=== PATIENT | female | born 1990 | race Caucasian/White ===

== ENCOUNTER 2019-08-29 15:51 | Outpatient (CLI) | payer OTHER ==
[~2019-08-29] VITALS: Ht 165.1 cm; Wt 70.4 kg
[2019-08-29] MEDS ORDERED: TERBUTALINE 1 MG/ML, 1ML SQ ONE (16:00)
[2019-08-29] MEDS ORDERED: TERBUTALINE 1 MG/ML, 1ML ONE (16:00)
[2019-08-29 18:43] LABS: MICROSCOPIC NOT IND
== END 2019-08-29 20:06 | disposition home or self-care (01) ==
LOC: LDOP 15:51
PROVIDERS: ATTEND Obstetrics & Gynecology
DX: O60.00 Preterm labor without delivery, unspecified trimester (principal); Z3A.32 32 weeks gestation of pregnancy
CPT/HCPCS: 59025; 76815; 81003; 87086; 96372; 99201; J3105; G0463

== ENCOUNTER 2019-09-21 12:59 | Outpatient (CLI) | payer OTHER ==
[~2019-09-21] VITALS: Ht 165.1 cm; Wt 90.9 kg
[2019-09-21] MEDS ORDERED: PREN1TAB60 PO (13:53)
[2019-09-21] MEDS ORDERED: acyclovir (13:54)
== END 2019-09-21 14:01 | disposition home or self-care (01) ==
LOC: LDOP 12:59
PROVIDERS: ATTEND Obstetrics & Gynecology
DX: O60.03 Preterm labor without delivery, third trimester (principal); Z3A.36 36 weeks gestation of pregnancy
CPT/HCPCS: 59025; 87081; 99211; G0463

== ENCOUNTER 2019-10-13 06:00 | Inpatient (IN) | payer OTHER ==
[~2019-10-13] VITALS: Ht 165.1 cm; Wt 72.7 kg
[~2019-10-13 06:00] MED LIST: PREN1TAB60 PO; acyclovir
[2019-10-13] MEDS: D5%-LACTATED RINGERS 1,000 ML IV SCH ×3 (06:20→22:20)
[2019-10-13] MEDS ORDERED: OXYTOCIN 30U/ 0.9% NaCL 500ML 500 ML IV ONE (06:20)
[2019-10-13] MEDS ORDERED: OXYTOCIN 30U/ 0.9% NaCL 500ML 500 ML IV PRN (06:20)
[2019-10-13 06:27] VITALS: BP 112/61
[2019-10-13] MEDS ORDERED: TERBUTALINE 1 MG/ML, 1ML SQ PRN (06:30)
[2019-10-13] MEDS ORDERED: FENTANYL PF 100 MCG/2ML IVPush PRN (06:30)
[2019-10-13] MEDS ORDERED: ONDANSETRON 2MG/ML, 2ML IVPush PRN ×2 (06:30→21:00)
[2019-10-13] MEDS ORDERED: CALCIUM CARBONATE 500 MG TAB.CHEW PO PRN ×2 (06:30→19:30)
[2019-10-13] MEDS ORDERED: FENTANYL PF 100 MCG/2ML IV PRN (06:30)
[2019-10-13] MEDS ORDERED: TERBUTALINE 1 MG/ML, 1ML IVPush PRN (06:30)
[2019-10-13] MEDS ORDERED: NEWBORN KIT ONE (06:37)
[2019-10-13] MEDS ORDERED: MISOPROSTOL 200 MCG TABLET ONE (06:38)
[2019-10-13] MEDS ORDERED: OXYTOCIN 30U/ 0.9% NaCL 500ML 500 ML ONE ×2 (06:38→20:08)
[2019-10-13] MEDS ORDERED: LIDOCAINE 1%, 20ML ONE (06:38)
[2019-10-13 06:41] LABS: BASOPHILS # (AUTO) 0.02 x10^3/uL (0-0.1); BASOPHILS % (AUTO) 0 % (0-1); EOSINOPHILS # (AUTO) 0.12 x10^3/uL (0-0.4); EOSINOPHILS % (AUTO) 2 % (1-7); LYMPHOCYTES # (AUTO) 1.81 x10^3/uL (1-3.4); LYMPHOCYTES % (AUTO) 25 % (22-44); MD NO; MEAN CORPUSCULAR HEMOGLOBIN 34.4 pg (27.0-34.8); MEAN CORPUSCULAR HGB CONC 34.1 g/dL (32.4-35.8); MEAN CORPUSCULAR VOLUME 100.7 fL (80-100); MEAN PLATELET VOLUME 7.2 fL (7.4-10.4); MONOCYTES # (AUTO) 0.34 x10^3/uL (0.2-0.8); MONOCYTES % (AUTO) 5 % (2-9); NEUTROPHILS # (AUTO) 5.09 x10^3/uL (1.8-6.8); NEUTROPHILS % (AUTO) 69 % (42-75); PLATELET COUNT 181 x10^3/uL (130-400); RED BLOOD COUNT 3.71 x10^6/uL (3.82-5.3); RED CELL DISTRIBUTION WIDTH 14.3 % (9.6-15.2)
[2019-10-13] MEDS: LACTATED RINGERS 1,000 ML IV SCH ×4 (07:01→20:39)
[2019-10-13] MEDS ORDERED: FENTANYL/BUPIV./NS/PF 250 ML EPIDCONT SCH ×2 (07:50→20:39)
[2019-10-13] MEDS ORDERED: FENTANYL PF 500 MCG, BUPIVACAINE/PF 0.5%, 30ML 62.5 ML in SODIUM CHLORIDE 0.9% 177.5 ML EPIDCONT SCH (08:00)
[2019-10-13] MEDS ORDERED: FENTANYL PF 100 MCG/2ML ONE (12:33)
[2019-10-13] MEDS ORDERED: BUPIVACAINE 0.25% ONE (12:33)
[2019-10-13] MEDS ORDERED: ONDANSETRON 2MG/ML, 2ML ONE (19:24)
[2019-10-13] MEDS ORDERED: MISOPROSTOL 200 MCG TABLET PR PRN (19:30)
[2019-10-13] MEDS ORDERED: SIMETHICONE 80 MG CHEW TAB PO PRN (19:30)
[2019-10-13] MEDS ORDERED: OXYcodone IR 5MG TABLET PO PRN (19:30)
[2019-10-13] MEDS ORDERED: ONDANSETRON 2MG/ML, 2ML IV PRN (19:30)
[2019-10-13] MEDS: OXYTOCIN 30U/ 0.9% NaCL 500ML 500 ML IV SCH (20:10)
[2019-10-13] MEDS ORDERED: LACTATED RINGERS 1,000 ML IVBOLUS PRN (21:00)
[2019-10-13] MEDS ORDERED: EPHEDRINE 50 MG/ML, 1ML IVPush PRN (21:00)
[2019-10-13 22:00] VITALS: BP 110/70
[2019-10-13] MEDS: IBUPROFEN 600 MG TABLET PO PRN (23:23)
[2019-10-13 23:30] VITALS: BP 113/78
[2019-10-14 03:34] LABS: BASOPHILS # (AUTO) 0.03 x10^3/uL (0-0.1); BASOPHILS % (AUTO) 0 % (0-1); EOSINOPHILS # (AUTO) 0.11 x10^3/uL (0-0.4); EOSINOPHILS % (AUTO) 1 % (1-7); LYMPHOCYTES # (AUTO) 2.12 x10^3/uL (1-3.4); LYMPHOCYTES % (AUTO) 19 % (22-44); MD NO; MEAN CORPUSCULAR HEMOGLOBIN 34.7 pg (27.0-34.8); MEAN CORPUSCULAR HGB CONC 34.6 g/dL (32.4-35.8); MEAN CORPUSCULAR VOLUME 100.4 fL (80-100); MEAN PLATELET VOLUME 7.2 fL (7.4-10.4); MONOCYTES # (AUTO) 0.62 x10^3/uL (0.2-0.8); MONOCYTES % (AUTO) 6 % (2-9); NEUTROPHILS # (AUTO) 8.15 x10^3/uL (1.8-6.8); NEUTROPHILS % (AUTO) 74 % (42-75); PLATELET COUNT 151 x10^3/uL (130-400); RED BLOOD COUNT 2.98 x10^6/uL (3.82-5.3); RED CELL DISTRIBUTION WIDTH 14.3 % (9.6-15.2)
[2019-10-14 03:40] VITALS: BP 104/67
[2019-10-14] MEDS: LACTATED RINGERS 1,000 ML IV SCH ×3 (04:39→12:39)
[2019-10-14] MEDS: IBUPROFEN 600 MG TABLET PO PRN ×3 (05:11→16:59)
[2019-10-14] MEDS: OXYTOCIN 30U/ 0.9% NaCL 500ML 500 ML IV SCH (05:30)
[2019-10-14] MEDS: D5%-LACTATED RINGERS 1,000 ML IV SCH (06:20)
[2019-10-14 08:20] VITALS: BP 108/66
[2019-10-14] MEDS: DOCUSATE 100 MG CAPSULE PO PRN ×2 (09:50→19:01)
[2019-10-14] MEDS: PRENATAL VIT/IRON/FA 1 EACH TABLET PO SCH (09:50)
[2019-10-14] MEDS: ACETAMINOPHEN 325 MG TABLET PO PRN ×3 (09:50→19:01)
[2019-10-14 12:20] VITALS: BP 111/71
[2019-10-14 16:42] VITALS: BP 105/79
[2019-10-14 19:08] VITALS: BP 107/71
[2019-10-15] MEDS: IBUPROFEN 600 MG TABLET PO PRN ×2 (01:38→08:16)
[2019-10-15] MEDS: ACETAMINOPHEN 325 MG TABLET PO PRN ×2 (01:38→05:54)
[2019-10-15 08:00] VITALS: BP 115/71
[2019-10-15] MEDS: DOCUSATE 100 MG CAPSULE PO PRN (08:16)
[2019-10-15] MEDS: PRENATAL VIT/IRON/FA 1 EACH TABLET PO SCH (08:16)
[2019-10-15] MEDS ORDERED: IBUP-1222 PO (08:53)
== END 2019-10-15 09:44 | disposition home or self-care (01) | DRG 807 ==
LOC: LDIP 06:00 → 2NW 21:40
PROVIDERS: ADMIT Obstetrics & Gynecology; ATTEND Obstetrics & Gynecology
PROC: 10E0XZZ Delivery of Products of Conception, External Approach (ICD-10-PCS; principal; 2019-10-13)
PROC: 0HQ9XZZ Repair Perineum Skin, External Approach (ICD-10-PCS; 2019-10-13)
PROC: 3E033VJ Introduction of Other Hormone into Peripheral Vein, Percutaneous Approach (ICD-10-PCS; 2019-10-13)
PROC: 10907ZC Drainage of Amniotic Fluid, Therapeutic from Products of Conception, Via Natural or Artificial Opening (ICD-10-PCS; 2019-10-13)
PROC: 3E0R3BZ Introduction of Anesthetic Agent into Spinal Canal, Percutaneous Approach (ICD-10-PCS; 2019-10-13)
PROC: 00HU33Z Insertion of Infusion Device into Spinal Canal, Percutaneous Approach (ICD-10-PCS; 2019-10-13)
DX: O70.0 First degree perineal laceration during delivery (principal); Z37.0 Single live birth; Z3A.39 39 weeks gestation of pregnancy; Z80.3 Family history of malignant neoplasm of breast; Z82.49 Family history of ischemic heart disease and other diseases of the circulatory system
CPT/HCPCS: 36415; 85025; 86592; 86850; 86900; 87340; G0378; J2405; J2590; J3010; J7120